=== PATIENT | male | born 1940 | race Caucasian/White ===

== ENCOUNTER 2020-06-15 22:46 | Emergency (ER) | payer MEDICARE, OTHER ==
[2020-06-15] MEDS ORDERED: HYDROcodone/Acetaminophen 10/325 mg Tablet ONE (23:30)
[2020-06-16 00:04] LABS: Bilirubin Negative (Negative); Blood, Urine Negative (Negative); Clarity Clear (Clear); Glucose, Urine (Dipstick) Normal (Negative); Ketone, Urine Negative (Negative); Leukocyte Negative Leu/uL (Negative); Nitrite Negative (Negative); Protein, Urine (Dipstick) Negative (Neg-Trace); Specific Gravity, Urine 1.015 (1.002-1.036); Urobilinogen Normal mg/dL (Less than 2)
== END 2020-06-16 01:35 | disposition home or self-care (01) ==
LOC: ERS 22:46
DX: M25.551 Pain in right hip (principal); M54.31 Sciatica, right side; F17.210 Nicotine dependence, cigarettes, uncomplicated
CPT/HCPCS: 72170; 72192; 81003

== ENCOUNTER 2020-10-04 13:42 | Outpatient (CLI) | payer MEDICARE, OTHER | END 2020-10-04 13:43 | disposition home or self-care (01) | LOC: BICRAD 13:42 | PROVIDERS: ATTEND Physician Assistant | DX: R06.02 Shortness of breath (principal); F17.200 Nicotine dependence, unspecified, uncomplicated | CPT/HCPCS: 71046 ==

== ENCOUNTER 2021-05-02 12:59 | Outpatient (CLI) | payer MEDICARE, OTHER | END 2021-05-02 13:00 | disposition home or self-care (01) | LOC: CT 12:59 | PROVIDERS: ATTEND Physician Assistant | DX: F17.200 Nicotine dependence, unspecified, uncomplicated (principal); H53.8 Other visual disturbances; I65.23 Occlusion and stenosis of bilateral carotid arteries; Z86.79 Personal history of other diseases of the circulatory system | CPT/HCPCS: 70496; 70498; 82565 ==

== ENCOUNTER 2021-06-05 10:56 | Outpatient (CLI) | payer MEDICARE, OTHER | END 2021-06-05 10:57 | disposition home or self-care (01) | LOC: BICRAD 10:56 | PROVIDERS: ATTEND Thoracic Surgery (Cardiothoracic Vascular Surgery) | DX: I65.23 Occlusion and stenosis of bilateral carotid arteries (principal); J98.4 Other disorders of lung; R91.8 Other nonspecific abnormal finding of lung field | CPT/HCPCS: 71046 ==